=== PATIENT | female | born 1980 | race Caucasian/White ===

== ENCOUNTER 2016-10-30 06:39 | Day surgery (SDC) | payer OTHER ==
[2016-10-27 11:47] LABS: APPEARANCE,URINE CLEAR; BILIRUBIN,URINE NEGATIVE (NEGATIVE); GLUCOSE, URINE NEGATIVE (NEGATIVE); KETONES,URINE NEGATIVE (NEGATIVE); LEUKOCYTE ESTERASE,URINE NEGATIVE (NEGATIVE); NITRITE,URINE NEGATIVE (NEGATIVE); PROTEIN,URINE NEGATIVE (NEGATIVE); URINE SPECIFIC GRAVITY 1.008; UROBILINOGEN,URINE NEGATIVE mg/dL (<2.0)
[2016-10-27 12:05] LABS: HEMATOCRIT 43.2 % (36.0-47.0); HEMOGLOBIN 14.8 g/dL (12.0-15.5); HGB HCT DIFFERENCE 1.2; MEAN CORPUSCULAR HEMOGLOBIN 31.4 pg (27.0-33.4); MEAN CORPUSCULAR HGB CONC 34.3 g/dL (32.0-36.0); MEAN CORPUSCULAR VOLUME 92 fl (80-97); RED BLOOD COUNT 4.73 10^6/uL (3.72-5.28); RED CELL DISTRIBUTION WIDTH 12.6 % (11.5-14.0); WHITE BLOOD COUNT 6.5 10^3/uL (4.0-10.5)
[2016-10-27 12:35] LABS: ANION GAP 10 (5-19); BLOOD UREA NITROGEN 9 mg/dL (7-20); CALCIUM 9.1 mg/dL (8.4-10.2); CARBON DIOXIDE 27 mmol/L (22-30); CHLORIDE 101 mmol/L (98-107); CREATININE RESULT 0.59 mg/dL (0.52-1.25); GLUCOSE 81 mg/dL (75-110); POTASSIUM 4.4 mmol/L (3.6-5.0); SODIUM 137.8 mmol/L (137-145)
[~2016-10-30 06:39] MED LIST: LACTATED RINGERS 1000 ML IV PRN; LIDOCAINE 0.5% INJ-PF (5 MG/ML) 50 ML SDV SUBCUT PRN
[2016-10-30] MEDS ORDERED: EPINEPHRINE INJ/PF 1 MG/1 ML AMPULE ONE ×4 (07:33→10:39)
[2016-10-30] MEDS ORDERED: BUPIVACAINE HCL 0.5%-EPI 1:200000 INJ/PF 30 ML VIAL ONE (07:34)
[2016-10-30] MEDS ORDERED: HYDROMORPHONE HCL INJ/PF 2 MG/ML AMPULE ONE (08:47)
[2016-10-30] MEDS ORDERED: MIDAZOLAM 2 MG/2 ML INJ ONE (08:47)
[2016-10-30] MEDS ORDERED: PROPOFOL INJ 200 MG/20 ML VIAL IV ONE (08:48)
[2016-10-30] MEDS ORDERED: ACETAMINOPHEN 100 ML IV ONE (08:48)
[2016-10-30] MEDS ORDERED: EPHEDRINE SULFATE INJ 50 MG/1 ML AMPULE ONE (09:29)
[2016-10-30] MEDS ORDERED: BUPIVACAINE HCL 0.25 % INJ/PF (2.5 MG/1 ML) 30 ML VIAL ONE (09:31)
[2016-10-30] MEDS ORDERED: CEFAZOLIN INJ 1 GM VIAL ONE (09:40)
[2016-10-30] MEDS ORDERED: ONDANSETRON HCL INJ/PF 4 MG/2 ML SDV IV PRN (10:04)
[2016-10-30] MEDS ORDERED: MORPHINE SULFATE 10 MG/ML INJ IV PRN (10:04)
[2016-10-30] MEDS ORDERED: MEPERIDINE HCL/PF INJ 25 MG/1 ML DISP.SYRIN IV PRN (10:04)
[2016-10-30] MEDS ORDERED: FENTANYL CITRATE INJ/PF 100 MCG/2 ML AMPUL IV PRN ×3 (10:04)
[2016-10-30] MEDS ORDERED: PROMETHAZINE HCL INJ 25 MG/1 ML VIAL IV PRN ×2 (10:04)
[2016-10-30] MEDS ORDERED: DIPHENHYDRAMINE HCL 50 MG/ML VIAL IV PRN (10:04)
[2016-10-30] MEDS ORDERED: OXYCODONE-ACETAMINOPHEN 5-325 MG TABLET PO PRN ×4 (10:04→11:41)
--- NOTE | 2016-10-30 11:38 | Operative Report ---
Operative Report DATE OF SURGERY: 10/30/16 PREOPERATIVE DIAGNOSIS: Left knee anterior cruciate ligament tear with medial lateral menisci tear POSTOPERATIVE DIAGNOSIS: Same OPERATION: Left knee arthroscopy with anterior cruciate ligament reconstruction using Achilles allograft, partial medial and lateral meniscectomies SURGEON: AMARI MENDES ANESTHESIA: GA TISSUE REMOVED OR ALTERED: None COMPLICATIONS: None ESTIMATED BLOOD LOSS: 15 mL INTRAOPERATIVE FINDINGS: As above PROCEDURE: Patient was brought to the operating room and successfully induced and intubated in a the supine position. Once the tube was secured a thigh tourniquet was applied to the left lower extremity was prepped and draped in a normal surgical fashion. Timeout was done identifying the left knee has a correct site. The extremity was exsanguinated with an Esmarch and then the tourniquet was inflated at 300 mmHg 0.25% of Marcaine was injected into the anticipated portal sites. 11 blade was used to establish the anterolateral portal. Scope was introduced and the capsule was distended with sterile saline solution. Under direct visualization the anteromedial portal sites was established first by applying a spinal needle and then established with the 11 blade. Probe was introduced and a diagnostic scope was done. As confirmed an MRI patient had a full complete tear of the anterior cruciate ligament with partial tearing of the medial meniscus and lateral meniscus. I used a 4.0 mm shaver in combination with a meniscal biter to do my resection of the torn menisci in both medial lateral compartments. Patient also was noted to have a large diffuse grade 3-4 chondral defect of the medial femoral condyle. At this point I used the combination of 5.5 mm shaver and 50 radiofrequency ablator to do my debridement of the torn anterior cruciate ligament and expose the lateral wall. I used a chondral pick to brigido where I would like to place my femoral tunnel. This was confirmed with the medial [id number] guide. I flexed the knee as much as possible and use my spade tip guidepin and drilled through. I was able to measure about a 30 mm tunnel before I pierced the cortex and passed the pin through the lateral aspect of the thigh. I used the 10 mm low-profile reamer then to do my femoral tunnel and stopped at 25 mm in depth. I used a shaver then to clean out the bony debris. I visualized the tunnel with a camera and make sure had a back wall and did not pierced the lateral cortex. At this point I fed a FiberWire through the eyelet and passed it through the lateral aspect of the thigh. This FiberWire were then later on the shuttle through the tibial tunnel to shuttle the graft. In the meantime it was clamped outside the skin. At this point I grabbed my retro-cutter guide which was marked at [address] on the anterior cruciate ligament footprint on the tibial side. This had been cleaned off with a shaver and bur and radiofrequency ablator as well. I used as reference the anterior horn of the lateral meniscus as a guide, as well as 7 mm anterior to the PCL. Once I was happy with the placement I did a medial incision and measured the tibial tunnel to be 35 mm. Once again I use the shaver to clean out the debris in the knee. The Achilles was preparing the back table and the made sure that I was able to pass through it 10 mm tunnel with the bone plug side and the tendinous portion. The graft had been placed in a moist sponge and ready for insertion once the tunnels were completed. I used a probe to grabbed the have the portion of the FiberWire suture that was left in the femoral tunnel and passed it through the tibial tunnel. At this point we shuttled the Achilles tendon allograft through the tibial tunnel into the femoral tunnel successfully using the bone plug to fit nicely in the femoral tunnel. I proceeded to notch the tunnel and placed a nitinol wire. I placed a 7 x 23mm bicomposite screw securing the bone plug in the femoral tunnel. I then turned my attention to the tibial tunnel where I notched it and then placed a nitinol wire for placement of the screw. While holding the leg in a reverse Renuka position by my specimen preparation assistant I pulled tension on the tibial side of the graft and placed my interference screw securing the graft. Renuka was used to showing good endpoint and minimal translation. Scope was introduced and I used a probe to check the tension on the anterior cruciate ligament graft. I was satisfied with the tension so at this point fluid was removed from the knee and the instruments were removed. I proceeded to close my 2 portal sites with 3-0 nylon and the tibial incision with 0 Vicryl to Vicryl and 2-0 nylon. Xeroform, 4 x 4, AVD pad, Sof-Rol was applied and then overwrapped with an Jose Francisco bandage. Tourniquet was let down and the drapes were removed. Patient was extubated and sent to PACU in stable condition.
[2016-10-30] MEDS: FENTANYL CITRATE INJ/PF 100 MCG/2 ML AMPUL ONE ×2 (11:40→11:45)
--- NOTE | 2016-10-30 11:41 | PDOC DISCHARGE SUMMARY ---
Discharge Summary (SDC) - Discharge Final Diagnosis: Status post left anterior cruciate ligament reconstruction and partial medial lateral meniscectomies Date of Surgery: 10/30/16 Discharge Date: 10/30/16 Condition: Good Treatment or Instructions: Patient instructed to follow up in 10-14 days. Patient instructed to keep dressing dry clean and intact for 4 days and then allowed to remove. At that point patient can shower and apply Band-Aids as needed. Patient can weight-bear as tolerated and do range of motion exercises as tolerated. Crutches for support and safety. Can wean crutches once stable on his feet. Patient instructed to call the office if patient develops fevers chills redness and drainage from the surgical sites. Prescriptions: Ondansetron HCl [Zofran 4 mg Tablet] 1 - 2 tab PO Q8HP PRN #20 tablet PRN Reason: Oxycodone HCl/Acetaminophen [Percocet 5-325 mg Tablet] 1 - 2 tab PO ASDIR PRN # 60 tablet PRN Reason: Discharge Diet: As Tolerated Respiratory Treatments at Home: Deep Breathing/Coughing Discharge Activity: No Driving, No Lifting/Push/Pulling, Slowly Increase Activity, Walk Frequently Adaptive Devices on Discharge: Axillary Crutches Report the Following to Your Physician Immediately: Shortness of Breath, Vomiting, Increase in Pain, Fever over 101 Degrees, Unusual Bleeding, Redness, Swelling, Warmth, Increased Soreness, Drainage-Yellow, Drainage-Green, Drainage- Foul Smelling
[2016-10-30] MEDS ORDERED: KETOROLAC TROMETHAMINE INJ/PF 30 MG/1 ML SDV ONE (12:09)
[2016-10-30] MEDS ORDERED: SUCCINYLCHOLINE CHLORIDE INJ 200 MG/10 ML VIAL ONE (12:21)
[2016-10-30] MEDS ORDERED: ROCURONIUM BROMIDE INJ 50 MG/5 ML VIAL IV ONE (12:21)
[2016-10-30] MEDS ORDERED: ONDANSETRON HCL INJ/PF 4 MG/2 ML SDV ONE (12:21)
[2016-10-30] MEDS ORDERED: METOCLOPRAMIDE HCL INJ/PF 10 MG/2 ML SDV ONE (12:21)
[2016-10-30] MEDS ORDERED: PHENYLEPHRINE HCL INJ/PF 10 MG/1 ML SDV ONE (12:21)
[2016-10-30] MEDS ORDERED: LIDOCAINE 2% INJ-PF (20 MG/ML) 10 ML AMPUL ONE (12:21)
[2016-10-30] MEDS ORDERED: DEXAMETHASONE SOD PHOSPHATE INJ 4 MG/1 ML VIAL ONE (12:21)
[2016-10-30] MEDS ORDERED: GLYCOPYRROLATE INJ 0.4 MG/2 ML VIAL ONE (12:21)
[2016-10-30] MEDS ORDERED: KETOROLAC TROMETHAMINE 60 MG/2 ML SDV ONE (12:21)
[2016-10-30 13:55] VITALS: BP 106/59
== END 2016-10-30 13:30 | disposition home or self-care (01) ==
LOC: OROUT 06:39
PROVIDERS: ATTEND Orthopaedic Surgery
PROC: 0SBD4ZZ Excision of Left Knee Joint, Percutaneous Endoscopic Approach (ICD-10-PCS; 2016-10-30)
PROC: 0MUP4JZ Supplement Left Knee Bursa and Ligament with Synthetic Substitute, Percutaneous Endoscopic Approach (ICD-10-PCS; 2016-10-30)
PROC: 0SBD4ZZ Excision of Left Knee Joint, Percutaneous Endoscopic Approach (ICD-10-PCS; principal; 2016-10-30 08:30)
DX: S83.512A Sprain of anterior cruciate ligament of left knee, initial encounter (principal); X58.XXXA Exposure to other specified factors, initial encounter; S83.262D Peripheral tear of lateral meniscus, current injury, left knee, subsequent encounter; S83.222D Peripheral tear of medial meniscus, current injury, left knee, subsequent encounter; X58.XXXD Exposure to other specified factors, subsequent encounter; F17.210 Nicotine dependence, cigarettes, uncomplicated; E11.9 Type 2 diabetes mellitus without complications; E66.9 Obesity, unspecified; Z79.899 Other long term (current) drug therapy; Z79.84 Long term (current) use of oral hypoglycemic drugs
CPT/HCPCS: 36415; 82962; 85027; 81025; 80048; 81001; 29880; 29888; C1713; J2250; J3490 ×4; J0690; J1100; J0171; J1885 ×2; J3010; J2765; J1170; J2370; J0330; J2405; J2704; J0131; 1400

== ENCOUNTER 2020-08-18 15:23 | Emergency (ER) | payer MEDICAID, OTHER ==
[2020-08-18 16:21] VITALS: BP 149/89
[2020-08-18] MEDS ORDERED: IPRATROPIUM/ALBUTEROL 0.5-2.5 MG/3 ML AMPUL NEB ONE (16:44)
--- NOTE | 2020-08-18 16:46 | ER Document Report ---
ED Medical Screen (RME) - General Chief Complaint: Cough Stated Complaint: COUGH,CONGESTION, HEADACHE Time Seen by Provider: 08/18/20 16:36 Mode of Arrival: Ambulatory Information source: Patient Notes: HPI; 40-year-old female presents to the emergency room complaining of cough congestion wheezing subjective fever and a sore throat for the past 4 days. Diagnosed with mono 08/06. Also positive Covid exposure last Thursday. She had family members who tested positive for days ago other family members tested positive today. She has not been tested for Covid. Not taking any medications for her symptoms. PE: Alert and oriented x3. Lungs: Expiratory wheezes no rales no rhonchi. Heart: Regular rate rhythm without murmurs, rubs, gallops. Patient was evaluated during the global COVID-19 pandemic and that diagnosis was suspected/considered upon their initial presentation. Their evaluation, treatment and testing was consistent with current guidelines for patients who presents with complaints or systems that may be related to COVID-19. I have greeted and performed a rapid initial assessment of this patient. A comprehensive ED assessment and evaluation of the patient, analysis of test results and completion of the medical decision making process will be conducted by additional ED providers. I have specifically instructed the patient or family members with the patient to immediately return to any nursing staff should anything change in the patient's condition or with their chief complaint. TRAVEL OUTSIDE OF THE [place] IN LAST 30 DAYS: No - Related Data Allergies/Adverse Reactions: No Known Allergies Allergy (Verified 12/08/12 02:52) Past Medical History - Past Medical History Cardiac Medical History: Denies: Hx Coronary Artery Disease, Hx Heart Attack, Hx Hypertension, Hx Heart Murmur Pulmonary Medical History: Denies: Hx Asthma, Hx Bronchitis, Hx COPD, Hx Pneumonia Neurological Medical History: Denies: Hx Cerebrovascular Accident, Hx Seizures Musculoskeltal Medical History: Denies Hx Arthritis Past Surgical History: Reports: Hx Section - 2013 - Immunizations Immunizations up to date: No Hx Diphtheria, Pertussis, Tetanus Vaccination: Yes Physical Exam - Vital signs Vitals: Temp Pulse Resp BP Pulse Ox 98.3 F 98 20 149/89 H 100 08/18/20 16:13 08/18/20 16:13 08/18/20 16:13 08/18/20 16:13 08/18/20 16:13 Course - Vital Signs Vital signs: Temp Pulse Resp BP Pulse Ox 98.3 F 98 20 149/89 H 100 08/18/20 16:13 08/18/20 16:13 08/18/20 16:13 08/18/20 16:13 08/18/20 16:13
--- NOTE | 2020-08-18 17:46 | RADIOLOGY REPORT (SQ) ---
EXAM DESCRIPTION: CHEST SINGLE VIEW IMAGES COMPLETED DATE/TIME: 08/18/2020 4:08 pm REASON FOR STUDY: cough . COMPARISON: None. EXAM PARAMETERS: NUMBER OF VIEWS: One view. TECHNIQUE: Single frontal radiographic view of the chest acquired. RADIATION DOSE: NA LIMITATIONS: None. FINDINGS: LUNGS AND PLEURA: No opacities, masses or pneumothorax. No pleural effusion. MEDIASTINUM AND HILAR STRUCTURES: No masses. Contour normal. HEART AND VASCULAR STRUCTURES: Heart normal in size. Normal vasculature. BONES: No acute findings. HARDWARE: None in the chest. OTHER: No other significant finding. IMPRESSION: NO ACUTE RADIOGRAPHIC FINDING IN THE CHEST. TECHNICAL DOCUMENTATION: JOB ID: [id number] 2010 [employer]- All Rights Reserved Reading location - IP/workstation name: [email or web address]
== END 2020-08-18 20:40 | disposition left against medical advice (07) ==
LOC: ER 15:23
DX: R05 Cough (principal); R09.81 Nasal congestion; R51.9 Headache, unspecified; Z20.828 Contact with and (suspected) exposure to other viral communicable diseases
CPT/HCPCS: 71045; 99281